=== PATIENT | female | born 1965 | race Caucasian/White ===

== ENCOUNTER 2016-11-16 00:09 | Emergency (ER) | payer MEDICAID, OTHER ==
[~2016-11-16] VITALS: Ht 170.2 cm; Wt 117.9 kg
[2016-11-16 00:14] VITALS: BP 110/82
--- NOTE | 2016-11-16 00:22 | NUR ---
PATIENT LEFT WITHOUT BEING SEEN BY DR. COPELAND. NO FURTHER CARE PROVIDED FOR PATIENT.
== END 2016-11-16 00:22 | disposition left against medical advice (07) ==
LOC: MED 00:09
DX: R07.89 Other chest pain (principal); Z53.21 Procedure and treatment not carried out due to patient leaving prior to being seen by health care provider